=== PATIENT | female | born 1995 | race Caucasian/White ===

== ENCOUNTER 2016-10-31 12:21 | Inpatient (IN) | payer OTHER ==
[~2016-10-31] VITALS: Ht 170.2 cm; Wt 85.5 kg
[~2016-10-31 12:21] MED LIST: ENOX40DI14 SC; PREN1TAB17 PO
[2016-10-31] MEDS ORDERED: OXYTOCIN 30 UNITS/LR 500 ML IV PRN ×2 (13:00→19:00)
[2016-10-31] MEDS ORDERED: CARBOPROST 250 MCG INJ IM PRN ×2 (13:00→19:00)
[2016-10-31] MEDS ORDERED: CEFAZOLIN 2 GM/50 ML (PMX) 50 ML IV SCH (13:00)
[2016-10-31] MEDS ORDERED: METHYLERGONOVINE 0.2 MG INJ IM PRN ×2 (13:00→19:00)
[2016-10-31] MEDS ORDERED: MISOPROSTOL 200 MCG TAB PR PRN ×2 (13:00→19:00)
[2016-10-31 13:06] VITALS: Ht 170.2 cm; Wt 85.5 kg
[2016-10-31 13:07] VITALS: BP 104/62; PULSE 83; RESP 20
[2016-10-31] MEDS: LACTATED RINGER'S 1,000 ML IV SCH ×2 (13:10→22:10)
[2016-10-31 13:28] LABS: BASOPHILS % 0.4 % (0.0-2.0); EOSINOPHILS # 0.1 10^3/ul (0.0-0.5); EOSINOPHILS % 0.5 % (0.0-7.0); HEMATOCRIT 24.8 % (37.0-47.0); HEMOGLOBIN 7.7 g/dl (12.0-16.0); LYMPHOCYTES # 1.8 10^3/ul (0.8-2.9); LYMPHOCYTES % 15.6 % (15.0-51.0); MEAN CORPUSCULAR HEMOGLOBIN 19.2 pg (29.0-33.0); MEAN CORPUSCULAR VOLUME 61.8 fl (82.0-101.0); MEAN PLATELET VOLUME 7.4 fl (7.4-10.4); MONOCYTE # 0.6 10^3/ul (0.3-0.9); MONOCYTES % 5.6 % (0.0-11.0); NEUTROPHIL # 8.8 10^3/ul (1.6-7.5); NEUTROPHILS % 77.9 % (39.0-77.0); PLATELET COUNT 337 10^3/UL (140-440); RED BLOOD COUNT 4.02 10^6/ul (4.20-5.40); RED CELL DISTRIBUTION WIDTH 19.8 % (11.5-14.5); UNCORRECTED WBC 11.3 10^3/ul (4.8-10.8); WHITE BLOOD COUNT 11.3 10^3/ul (4.8-10.8)
[2016-10-31 13:37] LABS: CONDITION 1; LH ANALYZER COMMENTS 1
[2016-10-31 13:47] LABS: INR 0.94; PROTIME 12.6 Sec (12.2-14.2)
[2016-10-31 13:48] LABS: PARTIAL THROMBOPLASTIN TIME 27.3 Sec (25.0-35.0)
[2016-10-31] MEDS ORDERED: morphine SULFATE/PF (10 MG/10 ML) INJ ONE (14:16)
[2016-10-31] MEDS ORDERED: OXYTOCIN 10 UNIT INJ ONE (14:17)
[2016-10-31] MEDS ORDERED: PHENYLephrine (100 MCG/ML) 5ML SYG ONE ×2 (14:17→14:53)
[2016-10-31] MEDS ORDERED: ONDANSETRON 4 MG INJ ONE (14:17)
[2016-10-31] MEDS ORDERED: FENTAnyl 50 MCG/ML VIAL ONE (14:57)
[2016-10-31] MEDS ORDERED: morphine 2 MG INJ IV PRN (15:30)
[2016-10-31] MEDS ORDERED: NALOXONE (0.4 MG/ML) INJ IV PRN (15:30)
[2016-10-31] MEDS ORDERED: DIPHENHYDRAMINE 50 MG INJ IV PRN (15:30)
[2016-10-31] MEDS ORDERED: ONDANSETRON 4 MG INJ IV PRN (15:30)
--- NOTE | 2016-10-31 15:41 | HP ---
Date/Time of Note Date/Time of Note DATE: 10/31/16 TIME: 15:36 OB - History Hx of Present Free Text/Dictation admitted for repeat C/S and sterilization procedure Last Menstrual Period: February 05, 2016 Estimated Due Date: Nov 06, 2016 : 3 Para: 2 Care: Good Care Ultrasounds: Normal mid trimester US Obstetrical Complications: Other (HX of DVTs ) Past Family/Social History * Past Medical, Surgical, Family and Obstetric Histories reviewed from chart. Blood Type: B+ Rubella: immune RPR/VDRL: Negative GBS Status: Unknown HBsAG: Negative OB Admission Exam Vital Signs Vital Signs Vital Signs Date Time Temp Pulse Resp B/P Pulse Ox O2 Delivery O2 Flow Rate FiO2 10/31/16 13:07 98.1 83 20 104/62 Room Air Physical Exam HEENT: WNL Heart: Rhythm Normal Lungs: Clear, Equal Abdomen: WNL Extremities: Normal Reflexes: Normal Cervical Dilatation: None Effacement: 0% Station: -3 Membranes: Intact Amniotic Fluid: Clear Heart Rate: 130's Accelerations: Accelerations Present Decelerations: Early Decelerations Varibility: Moderate Contractions on Admission: None Last 72 hours Lab Results CBC & BMP 10/31/16 13:05 OB Assessment/Plan Other Assessment: term gestation previous C/S X 1 desires sterilization Hx of DVTs Other plan: repeat C/S + BTL RATNA VALLEJO MD Oct 31, 2016 15:41
--- NOTE | 2016-10-31 15:44 | OPR ---
Operative Report Planned Procedure Procedure date Oct 31, 2016 Procedure(s) repeat C/S + BTL Performed by: RATNA VALLEJO MD Assisting provider: ANGIE BRISCOE MD Anesthesiologist: YANNI ANDRADE MD Pre-procedure diagnosis term gestation previous C/S X 1 desires sterilization Anesthesia Type: spinal Procedure Description Under satisfactory [] anesthesia, the patient was prepped and draped and placed in a supine position, tilted to the left. Pfannenstiel incision was made, carried through the subcutaneous tissue. Bleeders brought under control with electrocautery. Fascia incised to the length of the incision. Rectus muscles from the fascia, divided midline. Peritoneum exposed, entered through a transverse incision. Exploration of abdomen revealed gravid uterus. Bladder flap was developed. Transverse incision was made in the lower segment of the uterus. Amniotic sac ruptured. [] amniotic fluid noted. [] Nasal oropharyngeal suction was performed. The baby was handed to the team for immediate attention. The placenta was delivered manually intact. Uterine cavity was cleaned with wet sponge and drainage established. Uterus closed in 2 layers using [] in continuous fashion. Peritoneal cavity irrigated with warm saline. Sponge, needle and instrument count reported to be correct. Abdominal peritoneum closed with [] continuously. Rectus muscle approximated with []. Fascia closed with [], and skin closed with eli. Estimated blood loss []mL. Urine bag contained []mL of urine Post-Procedure Post-procedure diagnosis S/P C/S + BTL Findings: Live Baby Specimen removed: Yes Specimen description segments of R and L fallopian tubes Complications: None Pt Condition post procedure: stable Disposition: PACU Physician Certification I, the undersigned physician, hereby certify that I have discussed the procedure described in this consent form with this patient (or the patient's legal route service representative), including: * The risk and benefits of the procedure; * Any adverse reactions that may reasonably be expected to occur; * Any alternative efficacious methods of treatment which may be medically viable ; * The potential problems that may occur during recuperation; * Potential for blood transfusion and associated risks/benefits; and * Any research or economic interest I may have regarding this treatment. I further certify that the patient/legally responsible person was encouraged to ask question and that all questions were answered. RATNA VALLEJO MD Oct 31, 2016 15:44
[2016-10-31] MEDS: KETOROLAC 30 MG INJ IV PRN (17:13)
[2016-10-31] MEDS: OXYTOCIN 30 UNITS/LR 500 ML IV SCH ×2 (17:15→18:24)
[2016-10-31 18:34] VITALS: BP 101/57; PULSE 63; RESP 14
[2016-10-31] MEDS ORDERED: ACETAMINOPHEN/CODEINE #3 TAB PO PRN (19:00)
[2016-10-31 19:50] VITALS: BP 110/57; PULSE 78; RESP 18
[2016-11-01] VITALS: BP 105/55; PULSE 75; RESP 18
[2016-11-01] MEDS: CLINDAMYCIN 300 MG CAP PO SCH ×5 (00:29→23:54)
[2016-11-01] MEDS: KETOROLAC 30 MG INJ IV PRN ×2 (03:21→12:04)
[2016-11-01 04:00] VITALS: BP 100/49; RESP 18
[2016-11-01] MEDS ORDERED: ENOXAPARIN 40 MG/0.4 ML SYG SC SCH (04:00)
[2016-11-01] MEDS: LACTATED RINGER'S 1,000 ML IV SCH ×5 (04:55→14:01)
[2016-11-01 07:50] VITALS: BP 105/52; PULSE 88; RESP 18
[2016-11-01] MEDS: ENOXAPARIN 40 MG/0.4 ML SYG SC SCH (08:41)
[2016-11-01 09:53] LABS: BASOPHILS % 0.1 % (0.0-2.0); EOSINOPHILS % 0.3 % (0.0-7.0); HEMATOCRIT 22.3 % (37.0-47.0); HEMOGLOBIN 7.1 g/dl (12.0-16.0); LYMPHOCYTES # 1.2 10^3/ul (0.8-2.9); LYMPHOCYTES % 8.7 % (15.0-51.0); MEAN CORPUSCULAR HEMOGLOBIN 19.6 pg (29.0-33.0); MEAN CORPUSCULAR HGB CONC 31.7 g/dl (32.0-37.0); MEAN CORPUSCULAR VOLUME 61.9 fl (82.0-101.0); MEAN PLATELET VOLUME 7.7 fl (7.4-10.4); MONOCYTE # 0.8 10^3/ul (0.3-0.9); MONOCYTES % 6.3 % (0.0-11.0); NEUTROPHIL # 11.3 10^3/ul (1.6-7.5); NEUTROPHILS % 84.6 % (39.0-77.0); PLATELET COUNT 281 10^3/UL (140-440); RED BLOOD COUNT 3.61 10^6/ul (4.20-5.40); RED CELL DISTRIBUTION WIDTH 19.8 % (11.5-14.5); UNCORRECTED WBC 13.4 10^3/ul (4.8-10.8); WHITE BLOOD COUNT 13.4 10^3/ul (4.8-10.8)
[2016-11-01] MEDS ORDERED: BISACODYL 10 MG SUPP PR ONE (10:00)
[2016-11-01 10:12] LABS: CONDITION 1; LH ANALYZER COMMENTS 1
[2016-11-01 12:00] VITALS: BP 91/54; PULSE 92; RESP 17
--- NOTE | 2016-11-01 15:36 | PN ---
Date/Time of Note Date/Time of Note DATE: 11/01/16 TIME: 15:34 Assessment/Plan VTE Prophylaxis VTE Prophylaxis Intervention: ambulation Lines/Catheters IV Catheter Type (from Nrsg): Peripheral IV Assessment/Plan Assessment/Plan POD # 1 S/P C/S will advance diet and ambulate Subjective 24 Hr Interval Summary No BM Passing flatus Constitutional: BM, ambulates, flatus, improved, no complaints, urine output Pain Control: well controlled Exam/Review of Systems Vital Signs Vitals Vital Signs Date Time Temp Pulse Resp B/P Pulse Ox O2 Delivery O2 Flow Rate FiO2 11/01/16 12:00 98.2 92 17 91/54 Room Air 11/01/16 03:23 98 21 Intake and Output 10/31/16 10/31/16 11/01/16 15:00 23:00 07:00 Intake Total 1125 ml 500 ml 1200 ml Output Total 300 ml 500 ml Balance 825 ml 500 ml 700 ml Exam Free Text/Dictation abdomen: soft BS + Incision: covered Constitutional: alert, oriented, well developed Psych: nl mood/affect, no complaints Head: atraumatic, normocephalic Eyes: EOMI, nl conjunctiva, nl lids, nl sclera ENMT: mucosa pink and moist, nl external ears & nose, nl lips & teeth, nl nasal mucosa & septum Neck: non-tender, supple Respiratory: clear to auscultation, normal air movement Cardiovascular: nl pulses, regular rate and rhythm Gastrointestinal: nl liver, spleen, non-tender, soft Musculoskeletal: nl extremities to inspection, nl gait and stance Extremities: normal pulses Neurological: JAVA ARCHITECT II-XII intact, nl mental status, nl speech, nl strength Skin: nl turgor, rash or lesions Lymph: nl lymph nodes Results Result Diagram: 11/01/16 0859 RATNA VALLEJO MD Nov 01, 2016 15:36
[2016-11-01 16:00] VITALS: BP 88/54; PULSE 84; RESP 19
[2016-11-01] MEDS: OXYCODONE/ACETAMINOPHEN (5/325) TAB PO PRN ×2 (16:19→21:16)
[2016-11-01 20:00] VITALS: BP 99/52; PULSE 74; RESP 16
[2016-11-02] MEDS: OXYCODONE/ACETAMINOPHEN (5/325) TAB PO PRN ×5 (03:59→21:34)
[2016-11-02 04:00] VITALS: BP 95/50; PULSE 75; RESP 18
[2016-11-02] MEDS: CLINDAMYCIN 300 MG CAP PO SCH ×4 (05:47→23:31)
[2016-11-02 07:45] VITALS: BP 96/53; PULSE 73; RESP 16
[2016-11-02] MEDS: ENOXAPARIN 40 MG/0.4 ML SYG SC SCH (08:41)
--- NOTE | 2016-11-02 13:22 | DS ---
Date/Time of Note Date/Time of Note home next ay DATE: 11/02/16 TIME: 13:20 Obstetrical Discharge Record Final Diagnosis Final Diagnosis: Term delivered Other Final Diagnosis S/P C/S + BTL Vaginal Delivery Obstetrical Delivery: Bilateral Tubal Ligation Section Section: Repeat Condition on Discharge Physical Assessment Last Vitals: see nurses notes Voiding: Yes Bowel Movement: Yes Breast: Soft, non-tender, Filling Fundus: Firm Abdomen and Incision: soft BS + Incision: covered Episiotomy: NA Calf Tenderness: No Patient Condition: Good RATNA VALLEJO MD Nov 02, 2016 13:21
--- NOTE | 2016-11-02 13:24 | DS ---
Date/Time of Note Date/Time of Note DATE: 11/02/16 TIME: 13:22 Discharge Summary Admission/Discharge Info Admit Date/Time Oct 31, 2016 at 12:21 Discharge Date/Time 11/03/2016 Final Diagnosis S/P C/S + BTL Patient Condition: Good Procedures repeat C/S + BTL Hx of Present Illness 21 y/o female had repeat C/S + BTL Hospital Course uncomplicated Home Meds Reported Medications Enoxaparin Sodium* (Lovenox*) 40 Mg/0.4 Ml Syringe, 40 MG SC DAILY, SYR 07/25/16 Vit-Iron Fumarate-FA ( Tablet) 1 Each Tablet, 1 TAB PO DAILY, TAB 07/25/16 Follow-up Plan 4 days in clinic for staple removal RATNA VALLEJO MD Nov 02, 2016 13:24
--- NOTE | 2016-11-02 13:25 | PD.PPDC ---
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
[2016-11-02] MEDS ORDERED: Oxycodone/Acetamin (5/325) PO (13:37)
[2016-11-02] MEDS ORDERED: IBUP800T25 PO (13:37)
[2016-11-02] MEDS: IBUPROFEN 800 MG TAB PO SCH ×2 (14:16→21:33)
[2016-11-02 16:13] LABS: BASOPHILS % 0.1 % (0.0-2.0); EOSINOPHILS # 0.2 10^3/ul (0.0-0.5); EOSINOPHILS % 1.3 % (0.0-7.0); HEMATOCRIT 22.9 % (37.0-47.0); HEMOGLOBIN 7.1 g/dl (12.0-16.0); LYMPHOCYTES # 1.8 10^3/ul (0.8-2.9); LYMPHOCYTES % 15.1 % (15.0-51.0); MEAN CORPUSCULAR HEMOGLOBIN 19.2 pg (29.0-33.0); MEAN CORPUSCULAR HGB CONC 31.1 g/dl (32.0-37.0); MEAN CORPUSCULAR VOLUME 61.6 fl (82.0-101.0); MEAN PLATELET VOLUME 7.7 fl (7.4-10.4); MONOCYTE # 0.9 10^3/ul (0.3-0.9); NEUTROPHIL # 8.9 10^3/ul (1.6-7.5); NEUTROPHILS % 75.5 % (39.0-77.0); PLATELET COUNT 309 10^3/UL (140-440); RED BLOOD COUNT 3.71 10^6/ul (4.20-5.40); RED CELL DISTRIBUTION WIDTH 20.1 % (11.5-14.5); UNCORRECTED WBC 11.8 10^3/ul (4.8-10.8); WHITE BLOOD COUNT 11.8 10^3/ul (4.8-10.8)
[2016-11-02 16:23] LABS: CONDITION 1; LH ANALYZER COMMENTS 1
[2016-11-02 16:30] VITALS: BP 102/60; PULSE 65; RESP 17
[2016-11-02 19:30] VITALS: BP 94/56; PULSE 63; RESP 18
[2016-11-03 04:00] VITALS: BP 94/53; PULSE 78; RESP 18
[2016-11-03] MEDS: IBUPROFEN 800 MG TAB PO SCH ×2 (06:18→15:49)
[2016-11-03] MEDS: CLINDAMYCIN 300 MG CAP PO SCH ×2 (06:19→11:39)
[2016-11-03] MEDS: OXYCODONE/ACETAMINOPHEN (5/325) TAB PO PRN ×2 (06:38→11:39)
[2016-11-03 08:27] VITALS: BP 97/64; PULSE 64; RESP 14
[2016-11-03] MEDS: ENOXAPARIN 40 MG/0.4 ML SYG SC SCH (08:47)
[2016-11-03 15:50] VITALS: BP 119/78; PULSE 76; RESP 16
== END 2016-11-03 18:07 | disposition home or self-care (01) | DRG 766 ==
LOC: L-D 12:21 → PP1 18:08
PROVIDERS: ADMIT Obstetrics & Gynecology; ATTEND Obstetrics & Gynecology
PROC: 0UT70ZZ Resection of Bilateral Fallopian Tubes, Open Approach (ICD-10-PCS; 2016-10-31)
PROC: 10D00Z1 Extraction of Products of Conception, Low, Open Approach (ICD-10-PCS; principal; 2016-10-31 14:00)
DX: O82 Encounter for cesarean delivery without indication (principal); O34.219 Maternal care for unspecified type scar from previous cesarean delivery; Z86.718 Personal history of other venous thrombosis and embolism; Z37.0 Single live birth; Z30.2 Encounter for sterilization; Z3A.00 Weeks of gestation of pregnancy not specified
CPT/HCPCS: 85025; 85610; 85730; 86592; 86850; 86900; 86901; 88302; 94760; 99464; J0690; J1200; J1650; J1885; J2274; J2370; J2405; J2590; J3010; J7120